=== PATIENT | female | born 1970 | race African-American/Black ===

== ENCOUNTER 2018-10-15 12:38 | Emergency (ER) | payer OTHER ==
[~2018-10-15] VITALS: Ht 170.2 cm; Wt 70.3 kg
[2018-10-15] MEDS ORDERED: PREDNISONE 10 M10 MG PO (13:17)
[2018-10-15] MEDS ORDERED: PREDNISONE50 MG PO (13:18)
[2018-10-15 13:42] VITALS: BP 113/76
== END 2018-10-15 13:43 | disposition home or self-care (01) ==
LOC: M.ERS 12:38
DX: M25.532 Pain in left wrist (principal); M25.531 Pain in right wrist; M25.571 Pain in right ankle and joints of right foot